=== PATIENT | female | born 1930 | race Caucasian/White ===

== ENCOUNTER 2017-02-27 14:28 | Outpatient (CLI) | payer MEDICARE, OTHER ==
[2017-02-27 16:09] LABS: #Basophils 0.1 thou/uL (0.0-0.2); #Eosinphils 0.2 thou/uL (0.0-0.7); #Lymphocytes 1.8 thou/uL (1.20-3.40); #Monocytes 0.7 thou/uL (0.11-0.59); #Neutrophils 2.7 thou/uL (1.40-6.50); %Basophils 1.3 % (0.0-1.0); %Eosinophils 3.1 % (0.0-10.0); %Lymphocytes 33.9 % (21.0-51.0); %Monocytes 12.2 % (0.0-10.0); Hematocrit 40.4 % (36.0-47.0); Mean Platelet Volume 9.1 fL (7.4-10.4); Red Blood Cell (RBC) Count 4.18 mill/uL (4.20-5.40); White Blood Cell (WBC) Count 5.5 thou/uL (4.8-10.8)
--- NOTE | 2017-02-27 16:20 | RAD ---
RADIOGRAPH CHEST 2 VIEWS: HISTORY: An 87-year-old female for preoperative clearance. FINDINGS: There is cardiomegaly. The thoracic aorta is tortuous and ectatic. There is no evidence of air spac e density, pulmonary edema, or pneumothorax. There is no pleural effusion. There are sternotomy wi res and multiple surgical clips overlying the left cardiac border. IMPRESSION: 1) No acute pulmonary findings. 2) Cardiomegaly without congestive heart failure. 3) Ectasia of thoracic aorta. 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 [place] [] POS: [facility]
[2017-02-27 16:32] LABS: Anion Gap 12 mmol/L (10-20); BUN (Urea Nitrogen) 23 mg/dL (9.8-20.1); Calc. Creatinine Clearance 0 mL/min (70-130); Calcium 9.8 mg/dL (7.8-10.44); Carbon Dioxide 29 mmol/L (23-31); Chloride 103 mmol/L (98-107); Estimated GFR-MDRD 46
== END 2017-02-27 14:29 | disposition home or self-care (01) ==
LOC: LABBT 14:28
PROVIDERS: ATTEND Specialist
DX: Z01.818 Encounter for other preprocedural examination (principal); K64.8 Other hemorrhoids; I25.10 Atherosclerotic heart disease of native coronary artery without angina pectoris; I51.7 Cardiomegaly; I77.810 Thoracic aortic ectasia
CPT/HCPCS: 71020; 80048; 85025; 93005; 93010

== ENCOUNTER 2017-03-08 10:03 | Day surgery (SDC) | payer MEDICARE, OTHER ==
[2017-02-27 15:10] VITALS: BMI 21.9
[2017-03-08] MEDS ORDERED: Sodium Chloride 0.9% 100 ML ONE (11:13)
[2017-03-08] MEDS ORDERED: Ketorolac Tromethamine 30 MG/ML VIAL ONE (11:14)
[2017-03-08] MEDS ORDERED: Fentanyl 100 MCG/2 ML VIAL ONE (11:51)
[2017-03-08] MEDS ORDERED: Lidocaine 2% Jelly 5 ML TUBE ONE (12:06)
[2017-03-08] MEDS ORDERED: Bupivacaine 0.25% HCL 30 ML VIAL ONE (12:06)
[2017-03-08] MEDS ORDERED: Propofol 200 MG/20 ML VIAL ONE (12:45)
[2017-03-08] MEDS ORDERED: Metoclopramide HCl 10 MG/2 ML VIAL ONE (12:45)
[2017-03-08] MEDS ORDERED: Glycopyrrolate 0.2 MG/ML 5 ML SYRINGE ONE (12:45)
[2017-03-08] MEDS ORDERED: Ondansetron HCl/PF 4 MG/2 ML Vial ONE (12:45)
[2017-03-08] MEDS ORDERED: diphenhydrAMINE HCl 50 MG/ML 1 ML VIAL ONE (12:45)
[2017-03-08] MEDS ORDERED: Lidocaine 1% PF 5 ML VIAL ONE (12:45)
[2017-03-08] MEDS ORDERED: Dexamethasone 20 MG/5 ML VIAL ONE (12:45)
--- NOTE | 2017-03-08 14:00 | OP ---
DATE OF PROCEDURE: 03/08/2017 PREOPERATIVE DIAGNOSES: Internal/external hemorrhoids. POSTOPERATIVE DIAGNOSES: Internal/external hemorrhoids. OPERATION PERFORMED: PPH stapled hemorrhoidectomy, external hemorrhoidectomy. SURGEON: Dr. Alan Yip ANESTHESIA: General endotracheal. INDICATIONS: The patient is an 86-year-old female. She presents with rectal bleeding and evidence of internal hemorrhoids as the source. She is taken to the operating room at this time for a PPH st apled hemorrhoidectomy. She additionally has anterior external hemorrhoids which are bothersome and she requests removal simultaneously. OPERATIVE PROCEDURE IN DETAIL: Informed consent was obtained. The patient taken to the operating r oom where general endotracheal anesthesia was obtained with the patient in supine position. She was then rolled over in the prone jackknife position. Perianal area was prepped with Betadine, draped in sterile fashion. Local anesthetic was infiltrated using 0.25% plain Marcaine circumferentially. Digital examination performed. Anal sphincter was dilated uneventfully. Anal retractor was positi oned and held in place with 4 interrupted sutures of 2-0 Vicryl. A partial obturator was utilized t o place a pursestring suture of 2-0 Prolene several centimeters above the dentate line. The PPH sta pler was obtained and maximally opened. The anvil was passed above the pursestring suture. The pur sestring was then tied around the post of the stapler. With tension upon the suture and the pursest ring, the stapler was closed maximally. After waiting several seconds, the stapler was fired and re moved. The specimen was examined and it was of appropriate thickness and width. The vagina had bee n inspected to ensure there was no vaginal involvement. The staple line was then examined using the partial obturator. There was significantly more oozing from the staple line than is typical. The staple line was oversewed with 3-0 Vicryl at numerous loc ations around the circumference. This was continued until hemostasis was intact. Attention was then turned to the external hemorrhoids. There was 1 sort of flat external hemorrhoid extending from about the 11 o'clock to 1 o'clock radian. I decided to excise this in a radial fash ion as 2 separate hemorrhoids. There were 2 radial elliptical incisions were created. Each of them were excised and the defect was closed using a running locking suture of 3-0 Vicryl. Natasha gonzalesfoam with lidocaine jelly was placed. Dry gauze and mesh pants were placed. There were no compli cations. The patient tolerated the procedure well and was taken to recovery in stable condition.
== END 2017-03-08 15:30 | disposition home or self-care (01) ==
LOC: SDC 10:03
PROVIDERS: ATTEND Specialist
PROC: 06BY0ZC Excision of Hemorrhoidal Plexus, Open Approach (ICD-10-PCS; principal; 2017-03-08)
DX: K64.8 Other hemorrhoids (principal); K64.4 Residual hemorrhoidal skin tags; I10 Essential (primary) hypertension; Z79.899 Other long term (current) drug therapy; Z90.710 Acquired absence of both cervix and uterus; Z98.890 Other specified postprocedural states; Z96.1 Presence of intraocular lens; Z95.1 Presence of aortocoronary bypass graft
CPT/HCPCS: J0131; J0694; J1100; J1200; J1885; J2001; J2405; J2704; J2765; J3010; J7050; S0020

== ENCOUNTER 2017-03-08 21:21 | Emergency (ER) | END 2017-03-08 22:44 | disposition left against medical advice (07) | LOC: MERGE 21:21 → ERS 21:21 | DX: Z53.21 Procedure and treatment not carried out due to patient leaving prior to being seen by health care provider (principal) ==

== ENCOUNTER 2017-03-08 23:20 | Emergency (ER) | payer MEDICARE, OTHER ==
[2017-03-09 00:10] LABS: Bilirubin Negative (Negative); Blood, Urine Trace (Negative); Glucose, Urine (Dipstick) Negative (Negative); Ketone, Urine Negative (Negative); Nitrite Negative (Negative); Protein, Urine (Dipstick) Negative (Neg-Trace); Urobilinogen 0.2 mg/dL (0.2-1.0)
[2017-03-09 00:19] LABS: Bacteria/HPF None Seen HPF (None Seen); Hyaline Casts/LPF 0-3 HYALINE CAST LPF (0-3 Hyaline); RBC/HPF 0-3 HPF (0-3); Squamous Epithelial 0-3 HPF (0-3); WBC/HPF 0-3 HPF (0-3)
== END 2017-03-09 00:55 | disposition home or self-care (01) ==
LOC: SCSER 23:20 → MERGE 23:20 → SCSER 03-09 00:55
DX: R33.9 Retention of urine, unspecified (principal); I10 Essential (primary) hypertension; I48.92 Unspecified atrial flutter
CPT/HCPCS: 51702; 81003; 81015; 87086

== ENCOUNTER 2017-07-17 08:09 | Outpatient (CLI) | payer MEDICARE ==
--- NOTE | 2017-07-17 10:35 | CT ---
CT ABDOMEN AND PELVIS WITH IV CONTRAST: Date: 07-17-17 History: Left lower quadrant abdominal pain. Patient also states right lower quadrant pain for 4-5 mo nths. History of appendectomy and hysterectomy. Comparison: Noncontrast CT abdomen and pelvis, 12-13-15 as well as post contrast CT abdomen and pelvis on 03-03-15. FINDINGS: The heart remains enlarged. Vascular calcifications are seen in the visualized coronary arteries as w ell as involving the abdominal aorta and iliac arteries. There is dependent bibasilar atelectasis. Calcified granulomata are again seen in the right middle lo be. Degenerative changes are present in the spine. There is a small hiatal hernia present. Again noted are the areas of scarring involving the right kidney with hypodense 1.1 cm lesion within the anterior aspect of the midright kidney demonstrating fluid attenuation consistent with a cyst. Lo w density area seen in the superior pole right kidney is stable from the prior study. This is probabl y related to an area of scarring and associated cyst in this region. Minimal areas of scarring are se en in the inferior pole of the left kidney. Calcified granuloma are seen in the liver. The spleen, pancreas, bilateral adrenal glands, partially distended urinary bladder, and opacified sm all bowel demonstrate a normal CT appearance. There is colonic diverticulosis much greater involving the sigmoid colon without findings to suggest diverticulitis. There is evidence of a hysterectomy. The appendix is not visualized but the patient provides history of prior appendectomy. There is no free fluid, fluid collection, or lymphadenopathy seen in the abdomen or pelvis. There has been no significant interval change from the prior exam in 2014. IMPRESSION: 1. No acute findings are seen in the abdomen or pelvis. 2. Colonic diverticulosis. 3. Small hiatal hernia. 4. 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 5. Mild cardiomegaly. POS: [facility]
[2017-07-17] MEDS ORDERED: Iopamidol 370 76% 100 ML VIAL ONE (13:09)
== END 2017-07-17 08:10 | disposition home or self-care (01) ==
LOC: CT 08:09
PROVIDERS: ATTEND Internal Medicine Gastroenterology
DX: R10.30 Lower abdominal pain, unspecified (principal); K57.30 Diverticulosis of large intestine without perforation or abscess without bleeding; N28.1 Cyst of kidney, acquired; K44.9 Diaphragmatic hernia without obstruction or gangrene; I51.7 Cardiomegaly
CPT/HCPCS: 74177

== ENCOUNTER 2017-11-18 09:27 | Emergency (ER) | payer MEDICARE ==
[2017-11-18 10:13] LABS: Bilirubin Negative (Negative); Blood, Urine Negative (Negative); Clarity CLEAR (Clear); Glucose, Urine (Dipstick) Negative (Negative); Leukocyte Small (Negative); Nitrite Negative (Negative); Protein, Urine (Dipstick) Negative (Neg-Trace); Specific Gravity, Urine 1.017 (1.002-1.036); Urobilinogen 0.2 mg/dL (0.2-1.0); pH, Urine 7.5 (5.0-9.0)
[2017-11-18 10:16] LABS: Bacteria/HPF None Seen HPF (None Seen); Hyaline Casts/LPF 0-3 HYALINE CAST LPF (0-3 Hyaline); Squamous Epithelial 0-3 HPF (0-3); WBC/HPF 0-3 HPF (0-3)
--- NOTE | 2017-11-18 10:26 | RAD ---
PORTABLE CHEST: Date: 11/18/17 INDICATION: Abdominal pain. COMPARISON: 05/26/15. FINDINGS: Lung lam appear clear with no infiltrate or vascular congestion. Heart is mildly prominent with po stop sternotomy change. IMPRESSION: No acute process. POS: [facility]
[2017-11-18 10:37] LABS: #Basophils 0.1 thou/uL (0.0-0.2); #Eosinphils 0.1 thou/uL (0.0-0.7); #Lymphocytes 1.3 thou/uL (1.20-3.40); #Monocytes 0.7 thou/uL (0.11-0.59); #Neutrophils 2.8 thou/uL (1.40-6.50); %Basophils 1.2 % (0.0-1.0); %Eosinophils 1.8 % (0.0-10.0); %Lymphocytes 26.4 % (21.0-51.0); %Monocytes 14.5 % (0.0-10.0); %Neutrophils 56.2 % (42.0-75.0); Hemoglobin 13.9 g/dL (12.0-16.0); Mean Corpuscular HGB CONC 32.8 g/dL (32.0-36.0); Mean Corpuscular Hemoglobin 30.9 pg (27.0-31.0); Mean Corpuscular Volume 94.1 fL (78.0-98.0); Mean Platelet Volume 8.6 fL (7.4-10.4); Platelet Count 177 thou/uL (130-400); RBC Distribution Width 11.8 % (11.5-14.5); Red Blood Cell (RBC) Count 4.51 mill/uL (4.20-5.40); White Blood Cell (WBC) Count 5.1 thou/uL (4.8-10.8)
[2017-11-18 10:48] LABS: ALT (SGPT) 17 U/L (8-55); AST (SGOT) 27 U/L (5-34); Albumin 4.6 g/dL (3.4-4.8); Alkaline Phosphatase 64 U/L (40-150); Anion Gap 12 mmol/L (10-20); BUN (Urea Nitrogen) 16 mg/dL (9.8-20.1); Bilirubin, Total 0.6 mg/dL (0.2-1.2); Calc. Creatinine Clearance 0 mL/min (70-130); Calcium 10.2 mg/dL (7.8-10.44); Carbon Dioxide 28 mmol/L (23-31); Chloride 101 mmol/L (98-107); Estimated GFR-MDRD 63; Glucose 102 mg/dL (83-110); Lipase 66 U/L (8-78); Potassium 3.9 mmol/L (3.5-5.1); Protein, Total 7.6 g/dL (6.0-8.3); Sodium 137 mmol/L (136-145)
[2017-11-18 10:52] LABS: CKMB 1.7 ng/mL (0-6.6); Troponin I Less than 0.010 ng/mL (< 0.028)
--- NOTE | 2017-11-18 13:13 | CT ---
CT ABDOMEN AND PELVIS WITH ORAL AND IV CONTRAST: History An 87-year-old female with abdominal pain. FINDINGS: Comparison is made with the exam of 07/17/17. There are mild dependent changes in the lung bases. The heart is enlarged. Calcified granuloma in t he liver is again seen. The spleen, pancreas, and adrenal glands are normal. There is scarring the kidneys bilaterally and cysts in the right kidney are again seen. No calcified gallstones are noted. No free air, free fluid, or lymphadenopathy is noted in the abdomen or pelvis. There are vascular ca lcifications without evidence of aneurysmal dilatation of the abdominal aorta. There are degenerativ e changes in the spine. The small bowel loops are not abnormally dilated. There is colonic diverticulosis without pericoloni c inflammatory changes to suggest diverticulitis. No abnormally loculated fluid collections noted to suggest abscess formation. The patient is post hysterectomy. The appendix is not visualized consis tent with history of previous appendectomy. IMPRESSION: 1. No evidence of acute process. 2. Small hiatal hernia. 3. Colonic diverticulosis without diverticulitis. 4. 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 POS: [facility]
[2017-11-18] MEDS ORDERED: Bismuth Subs 17.5mg/mL Susp 120 ML BOT PO SCH (13:45)
[2017-11-18] MEDS ORDERED: Iopamidol 370 76% 50 ML VIAL FS ONE (13:47)
[2017-11-18] MEDS ORDERED: Iopamidol 370 76% 100 ML VIAL ONE (13:47)
== END 2017-11-18 13:51 | disposition home or self-care (01) ==
LOC: ERS 09:27
DX: R10.12 Left upper quadrant pain (principal); R10.31 Right lower quadrant pain; I48.91 Unspecified atrial fibrillation; I25.10 Atherosclerotic heart disease of native coronary artery without angina pectoris; I10 Essential (primary) hypertension; Z79.899 Other long term (current) drug therapy
CPT/HCPCS: 71045; 74177; 80053; 81003; 81015; 82553; 83690; 84484; 85025; 93005

== ENCOUNTER 2018-01-02 08:35 | Outpatient (CLI) | payer MEDICARE | END 2018-01-02 08:36 | disposition home or self-care (01) | LOC: BICMAMMO 08:35 | PROVIDERS: ATTEND Family Medicine | DX: Z12.31 Encounter for screening mammogram for malignant neoplasm of breast (principal); R92.1 Mammographic calcification found on diagnostic imaging of breast; Z80.3 Family history of malignant neoplasm of breast | CPT/HCPCS: 77063; 77067 ==

== ENCOUNTER 2018-09-02 09:03 | Emergency (ER) | payer MEDICARE ==
[2018-09-02 09:39] LABS: #Basophils 0.1 thou/uL (0.0-0.2); #Eosinphils 0.1 thou/uL (0.0-0.7); #Monocytes 0.7 thou/uL (0.11-0.59); %Basophils 1.4 % (0.0-1.0); %Eosinophils 1.3 % (0.0-10.0); %Lymphocytes 17.7 % (21.0-51.0); %Monocytes 11.6 % (0.0-10.0); Hemoglobin 14.1 g/dL (12.0-16.0); Mean Corpuscular HGB CONC 32.1 g/dL (32.0-36.0); Mean Corpuscular Hemoglobin 30.7 pg (27.0-31.0); Mean Corpuscular Volume 95.6 fL (78.0-98.0); Mean Platelet Volume 8.1 fL (7.4-10.4); Platelet Count 206 thou/uL (130-400); RBC Distribution Width 11.6 % (11.5-14.5); Red Blood Cell (RBC) Count 4.61 mill/uL (4.20-5.40); White Blood Cell (WBC) Count 5.9 thou/uL (4.8-10.8)
[2018-09-02 09:51] LABS: Clarity Hazy (Clear)
[2018-09-02 09:53] LABS: Bilirubin Unable to Interpret (Negative); Urobilinogen UNABLE TO INTERPRET mg/dL (0.2-1.0)
[2018-09-02 09:54] LABS: Protein, Urine (Dipstick) Unable to Interpret mg/dL (Neg-Trace)
[2018-09-02 10:05] LABS: Blood, Urine Unable to Interpret (Negative); Glucose, Urine (Dipstick) Unable to Interpret mg/dL (Negative); Leukocyte Unable to Interpret (Negative); Nitrite Unable to Interpret (Negative)
[2018-09-02 10:05] LABS: ALT (SGPT) 22 U/L (8-55); AST (SGOT) 27 U/L (5-34); Albumin 4.6 g/dL (3.4-4.8); Alkaline Phosphatase 60 U/L (40-150); Anion Gap 11 mmol/L (10-20); BUN (Urea Nitrogen) 16 mg/dL (9.8-20.1); Bilirubin, Total 0.7 mg/dL (0.2-1.2); Calc. Creatinine Clearance 0 mL/min (70-130); Calcium 10.1 mg/dL (7.8-10.44); Carbon Dioxide 30 mmol/L (23-31); Chloride 99 mmol/L (98-107); Estimated GFR-MDRD 59; Glucose 159 mg/dL (83-110); Potassium 3.8 mmol/L (3.5-5.1); Protein, Total 7.6 g/dL (6.0-8.3); Sodium 136 mmol/L (136-145)
[2018-09-02 10:17] LABS: Bacteria/HPF 1+ HPF (None Seen); Hyaline Casts/LPF NONE SEEN LPF (0-3 Hyaline); Squamous Epithelial 0-3 HPF (0-3); Yeast-All Forms 1+ HPF (None Seen)
[2018-09-02] MEDS ORDERED: ISOVUE-370 76%-LOCM 1 ML ONE (10:23)
--- NOTE | 2018-09-02 12:21 | CT ---
CT ABDOMEN AND PELVIS WITH IV CONTRAST: 09/02/18 PROVIDED CLINICAL HISTORY: Lower abdominal pain. FINDINGS: Comparison 11/18/17. The visualized lung bases are free of significant opacity. The liver, spleen, pancreas, kidneys and adrenal glands demonstrate no evidence for an acute abnormal ity. There is no bowel dilatation, inflammatory fat stranding, free fluid or lymph node enlargement appare nt. The appendix is not distinctly identified. Sigmoid colonic diverticulosis is demonstrated without CT evidence for diverticulitis. The uterus and adnexa are not visualized and presumed surgically abs ent. Suture material is seen associated with the rectum. The osseous structures demonstrate no concerning osteoblastic or osteolytic lesions. Moderate vascular calcification is noted. IMPRESSION: No evidence for an acute process. Chronic findings as above. POS: [facility]
== END 2018-09-02 12:50 | disposition home or self-care (01) ==
LOC: ERS 09:03
DX: N30.90 Cystitis, unspecified without hematuria (principal); I48.91 Unspecified atrial fibrillation; I25.10 Atherosclerotic heart disease of native coronary artery without angina pectoris; I10 Essential (primary) hypertension
CPT/HCPCS: 36415; 74177; 80053; 81003; 81015; 83690; 85025; 87086; Q9966

== ENCOUNTER 2018-12-09 10:02 | Emergency (ER) | payer MEDICARE ==
[2018-12-09 10:38] LABS: #Basophils 0.1 thou/uL (0.0-0.2); #Eosinphils 0.1 thou/uL (0.0-0.7); #Lymphocytes 1.6 thou/uL (1.20-3.40); #Monocytes 0.8 thou/uL (0.11-0.59); #Neutrophils 3.1 thou/uL (1.40-6.50); %Basophils 1.3 % (0.0-1.0); %Eosinophils 1.8 % (0.0-10.0); %Lymphocytes 27.7 % (21.0-51.0); %Neutrophils 55.2 % (42.0-75.0); Hemoglobin 14.5 g/dL (12.0-16.0); Mean Corpuscular HGB CONC 32.5 g/dL (32.0-36.0); Mean Corpuscular Hemoglobin 30.8 pg (27.0-31.0); Mean Corpuscular Volume 94.7 fL (78.0-98.0); Mean Platelet Volume 8.2 fL (7.4-10.4); Platelet Count 199 thou/uL (130-400); RBC Distribution Width 11.7 % (11.5-14.5); White Blood Cell (WBC) Count 5.6 thou/uL (4.8-10.8)
--- NOTE | 2018-12-09 10:41 | RAD ---
EXAM: Chest Two Views 12/09/2018 10:38 AM HISTORY: Tachycardia COMPARISON: February 27, 2017 and November 18, 2017 FINDINGS: Heart: There is stable cardiomegaly and post-CABG change. Pulmonary vessels: Normal. Costophrenic angles: Clear. Lungs: No confluent pneumonia, overt edema, pleural effusion, or other acute process. Pneumothorax: None. Osseous structures:Intact. Additional findings: None. IMPRESSION: No significant acute intrathoracic disease.
[2018-12-09 11:06] LABS: ALT (SGPT) 19 U/L (8-55); AST (SGOT) 25 U/L (5-34); Albumin 4.5 g/dL (3.4-4.8); Alkaline Phosphatase 67 U/L (40-150); Anion Gap 12 mmol/L (10-20); BUN (Urea Nitrogen) 16 mg/dL (9.8-20.1); Bilirubin, Total 0.6 mg/dL (0.2-1.2); Calc. Creatinine Clearance 0 mL/min (70-130); Carbon Dioxide 29 mmol/L (23-31); Chloride 101 mmol/L (98-107); Estimated GFR-MDRD 55; Globulin 2.8 g/dL (2.4-3.5); Glucose 110 mg/dL (83-110); Potassium 4.4 mmol/L (3.5-5.1); Protein, Total 7.3 g/dL (6.0-8.3); Sodium 138 mmol/L (136-145)
== END 2018-12-09 14:19 | disposition home or self-care (01) ==
LOC: ERS 10:02
DX: R00.2 Palpitations (principal); I25.10 Atherosclerotic heart disease of native coronary artery without angina pectoris; I10 Essential (primary) hypertension; I48.91 Unspecified atrial fibrillation; Z79.82 Long term (current) use of aspirin; Z79.899 Other long term (current) drug therapy
CPT/HCPCS: 71046; 80053; 84484 ×2; 85025; 93005 ×2; 99285; G0463; 36415; 99213

== ENCOUNTER 2019-01-07 07:40 | Outpatient (CLI) | payer MEDICARE ==
--- NOTE | 2019-01-07 10:16 | MMO ---
Bilateral MAMMO Bilat Screen [facility]. CLINICAL HISTORY: Patient is 88 years old and is seen for screening. The patient has the following family history of breast cancer: daughter. The patient has no personal history of cancer. VIEWS: The views performed were: bilateral craniocaudal with tomosynthesis and bilateral mediolateral oblique with tomosynthesis. FILMS COMPARED: The present examination has been compared to prior imaging studies performed at [facility] on 11/29/2014, 12/05/2015, 12/31/2016 and 01/02/2018. MAMMOGRAM FINDINGS: There are scattered fibroglandular densities. Finding 1: There are stable benign appearing calcifications seen in both breasts. Finding 2: There are stable benign appearing densities seen in both breasts. There are no suspicious masses, suspicious calcifications, or new areas of architectural distortion. IMPRESSION: THERE IS NO MAMMOGRAPHIC EVIDENCE OF MALIGNANCY. A ROUTINE FOLLOW-UP MAMMOGRAM IN 1 YEAR IS RECOMMENDED. THE RESULTS OF THIS EXAM WERE SENT TO THE PATIENT. ACR BI-RADS Category 2 - Benign finding MAMMOGRAPHY NOTE: 1. A negative mammogram report should not delay a biopsy if a dominant of clinically suspicious mass is present. 2. Approximately 10% to 15% of breast cancers are not detected by mammography. 3. Adenosis and dense breasts may obscure an underlying neoplasm. Reported by: CARLOS LAGUNAS MD Electonically Signed: [id number]
== END 2019-01-07 07:41 | disposition home or self-care (01) ==
LOC: BICMAMMO 07:40
PROVIDERS: ATTEND Family Medicine
DX: Z12.31 Encounter for screening mammogram for malignant neoplasm of breast (principal); Z80.3 Family history of malignant neoplasm of breast
CPT/HCPCS: 77063; 77067

== ENCOUNTER 2020-06-09 09:44 | Emergency (ER) | payer MEDICARE ==
[2020-06-09 11:03] LABS: Bilirubin Negative (Negative); Blood, Urine Trace (Negative); Clarity Clear (Clear); Glucose, Urine (Dipstick) Normal (Negative); Ketone, Urine Negative (Negative); Leukocyte 500 Leu/uL (Negative); Nitrite Negative (Negative); Protein, Urine (Dipstick) Negative (Neg-Trace); Specific Gravity, Urine 1.017 (1.002-1.036); Urobilinogen Normal mg/dL (Less than 2); pH, Urine 6.5 (5.0-9.0)
[2020-06-09 11:10] LABS: Hemoglobin 14.5 g/dL (12.0-16.0); Mean Corpuscular HGB CONC 33.5 g/dL (32.0-36.0); Mean Corpuscular Hemoglobin 31.9 pg (27.0-31.0); Mean Corpuscular Volume 95.1 fL (78.0-98.0); Mean Platelet Volume 9.2 fL (7.4-10.4); Platelet Count 185 thou/uL (130-400); RBC Distribution Width 11.6 % (11.5-14.5); Red Blood Cell (RBC) Count 4.56 mill/uL (4.20-5.40)
[2020-06-09 11:12] LABS: RBC/HPF 0-3 HPF (0-3)
[2020-06-09 11:13] LABS: Bacteria/HPF Rare-Few HPF (None Seen)
[2020-06-09 11:27] LABS: ALT (SGPT) 16 U/L (8-55); AST (SGOT) 27 U/L (5-34); Albumin 4.4 g/dL (3.4-4.8); Alkaline Phosphatase 60 U/L (40-110); Anion Gap 15 mmol/L (10-20); BUN (Urea Nitrogen) 13 mg/dL (9.8-20.1); Bilirubin, Total 0.6 mg/dL (0.2-1.2); Calc. Creatinine Clearance 0 mL/min (70-130); Calcium 9.3 mg/dL (7.8-10.44); Carbon Dioxide 25 mmol/L (23-31); Chloride 99 mmol/L (98-107); Globulin 3.2 g/dL (2.4-3.5); Glucose 100 mg/dL (83-110); Lipase 36 U/L (8-78); Protein, Total 7.6 g/dL (6.0-8.3); Sodium 135 mmol/L (136-145)
[2020-06-09 11:28] LABS: Band 2 % (5-11); Eosinophils 3 % (0-10); Lymphocytes 29 % (21-51); MDiff Complete? YES; Monocytes 11 % (0-10); Neutrophil 50 % (42-75); RBC Morphology Normal; Reactive Lymphocytes 4 % (0-10)
[2020-06-09] MEDS ORDERED: Acetaminophen 500 MG TAB ONE (11:28)
--- NOTE | 2020-06-09 12:00 | CT ---
CT OF THE ABDOMEN AND PELVIS WITH IV CONTRAST INDICATION: Worsening lower abdominal pain COMPARISON: September 02, 2018 CT the abdomen and pelvis FINDINGS: ABDOMEN: Lung bases: Clear Liver: No focal lesion. Gallbladder: Normal appearing. Pancreas: Normal. Adrenal glands: Normal. Spleen: Normal. Kidneys and ureters: Bilateral renal cysts are stable. Cortical scarring involving the right kidney i s stable. Vasculature: There are severe vascular calcifications seen involving the visualized vasculature. Lymph nodes:No lymphadenopathy. Free fluid in abdomen:No free fluid is evident. PELVIS: Small and large bowel: There are scattered colonic diverticula without evidence of active diverticuli tis. There is a mild amount retained stool within colon. The small bowel is of normal caliber. Appendix:Normal Bladder: Normal. Rectal and perirectal soft tissues:Normal. Reproductive structures: Surgically absent Free fluid in pelvis: No free fluid is evident. Lymphadenopathy pelvis: No lymphadenopathy is evident. Osseous structures: There is mild dextroscoliosis of the lumbar spine. There is scattered degenerati ve and osteoarthritic changes. Soft tissues:Normal. IMPRESSION: 1. No acute abnormality.
== END 2020-06-09 12:25 | disposition home or self-care (01) ==
LOC: ERS 09:44
DX: K59.00 Constipation, unspecified (principal); I48.91 Unspecified atrial fibrillation; I10 Essential (primary) hypertension; Z79.82 Long term (current) use of aspirin; Z79.899 Other long term (current) drug therapy
CPT/HCPCS: 74177; 80053; 81003; 81015; 83690; 85025

== ENCOUNTER 2021-06-29 10:57 | Emergency (ER) | payer MEDICARE ==
[~2021-06-29 10:57] MED LIST: Iopamidol 370 76% 100 ML VIAL ONE
[2021-06-29 12:31] LABS: Hemoglobin 14.7 g/dL (12.0-16.0); Mean Corpuscular HGB CONC 32.9 g/dL (32.0-36.0); Mean Corpuscular Hemoglobin 32.6 pg (27.0-31.0); Platelet Count 183 thou/uL (130-400); RBC Distribution Width 11.7 % (11.5-14.5); Red Blood Cell (RBC) Count 4.52 mill/uL (4.20-5.40); White Blood Cell (WBC) Count 5.7 thou/uL (4.8-10.8)
[2021-06-29 12:46] LABS: ALT (SGPT) 17 U/L (8-55); AST (SGOT) 28 U/L (5-34); Albumin 4.3 g/dL (3.4-4.8); Alkaline Phosphatase 63 U/L (40-110); Anion Gap 13 mmol/L (10-20); BUN (Urea Nitrogen) 14 mg/dL (9.8-20.1); Bilirubin, Total 0.3 mg/dL (0.2-1.2); Calc. Creatinine Clearance 0 mL/min (70-130); Calcium 9.5 mg/dL (7.8-10.44); Carbon Dioxide 25 mmol/L (23-31); Chloride 98 mmol/L (98-107); Globulin 3.2 g/dL (2.4-3.5); Glucose 112 mg/dL (83-110); Lipase 50 U/L (8-78); Potassium 4.3 mmol/L (3.5-5.1); Protein, Total 7.5 g/dL (5.8-8.1); Sodium 132 mmol/L (136-145)
[2021-06-29 12:54] LABS: Band 7 % (5-11); Eosinophils 1 % (0-10); Lymphocytes 17 % (21-51); MDiff Complete? YES; Monocytes 23 % (0-10); Neutrophil 51 % (42-75); Platelet Morphology Comment Appears Adequate; RBC Morphology Normal; Reactive Lymphocytes 1 % (0-10)
[2021-06-29 13:40] LABS: Bacteria/HPF None Seen HPF (None Seen); Bilirubin Negative (Negative); Blood, Urine 1+ (Negative); Clarity Clear (Clear); Glucose, Urine (Dipstick) Normal (Negative); Ketone, Urine Negative (Negative); Leukocyte 25 Leu/uL (Negative); Nitrite Negative (Negative); Protein, Urine (Dipstick) Negative (Neg-Trace); Specific Gravity, Urine 1.021 (1.002-1.036); Urobilinogen Normal mg/dL (Less than 2); WBC/HPF 0-3 HPF (0-3)
[2021-06-29] MEDS ORDERED: cefTRIAXone\\ROCEPHIN 1 GM VIAL ONE (15:57)
== END 2021-06-29 18:05 | disposition home or self-care (01) ==
LOC: ERS 10:57
DX: N39.0 Urinary tract infection, site not specified (principal); I48.91 Unspecified atrial fibrillation; I10 Essential (primary) hypertension; I25.10 Atherosclerotic heart disease of native coronary artery without angina pectoris; Z87.19 Personal history of other diseases of the digestive system; Z79.82 Long term (current) use of aspirin; Z79.899 Other long term (current) drug therapy
CPT/HCPCS: 36415; 74177; 80053; 81003; 81015; 83690; 85025; 87086; 96365; J0696; Q9967

== ENCOUNTER 2022-01-23 09:18 | Outpatient (CLI) | payer MEDICARE | END 2022-01-23 09:19 | disposition home or self-care (01) | LOC: BICMAMMO 09:18 | PROVIDERS: ATTEND Family Medicine | DX: Z12.31 Encounter for screening mammogram for malignant neoplasm of breast (principal); Z80.3 Family history of malignant neoplasm of breast | CPT/HCPCS: 77063; 77067 ==